=== PATIENT | female | born 1980 | race Caucasian/White ===

== ENCOUNTER 2020-07-31 09:58 | Outpatient (CLI) | payer MEDICARE, MEDICAID ==
--- NOTE | 2020-07-31 11:01 | MMO ---
Bilateral MAMMO Bilat Diag [facility]+CONNIE. CLINICAL HISTORY: Patient is 39 years old and is seen for diagnostic exam and lump or thickening in the left breast at 7 o'clock. The patient has the following family history of breast cancer: maternal aunt, malignant (generic). The patient has no personal history of cancer. The patient has a history of left needle biopsy at age 22 - benign. VIEWS: The views performed were: bilateral craniocaudal with tomosynthesis; bilateral mediolateral oblique with tomosynthesis; and bilateral mediolateral with tomosynthesis. FILMS COMPARED: The present examination has been compared to prior imaging studies performed at [facility] on 07/09/2012 and 07/31/2020. This study has been interpreted with the assistance of computer-aided detection. MAMMOGRAM FINDINGS: The breasts are extremely dense, which may lower the sensitivity of mammography. There are no suspicious masses, suspicious calcifications, or new areas of architectural distortion. There are no mammographic or sonographic abnormalities in the area of palpable concern. The patient is referred back to her clinician. Negative imaging findings should not preclude biopsy if clinical findings are suspicious. IMPRESSION: THERE ARE NO MAMMOGRAPHIC OR SONOGRAPHIC ABNORMALITIES IN THE AREA OF PALPABLE CONCERN. THE PATIENT IS REFERRED BACK TO HER CLINICIAN. NEGATIVE IMAGING FINDINGS SHOULD NOT PRECLUDE BIOPSY IF CLINICAL FINDINGS ARE SUSPICIOUS. THE RESULTS OF THIS EXAM WERE SENT TO THE PATIENT. ACR BI-RADS Category 1 - Negative MAMMOGRAPHY NOTE: 1. A negative mammogram report should not delay a biopsy if a dominant of clinically suspicious mass is present. 2. Approximately 10% to 15% of breast cancers are not detected by mammography. 3. Adenosis and dense breasts may obscure an underlying neoplasm. Reported by: KAYLENE LUIS MD Electonically Signed: [id number]
--- NOTE | 2020-07-31 11:09 | ULT ---
EXAM: US Breast Limited Lt PROVIDED CLINICAL HISTORY: Left breast palpable abnormality COMPARISON: None FINDINGS: Limited sonographic interrogation was performed of the 6-8 o'clock positions of the left breast breas t in the reported region of palpable concern. The sonographic appearance of the breast tissue in this region is normal. IMPRESSION: No sonographic abnormality is evident in the region of clinical concern. Negative imaging findings sh ould not preclude further evaluation of a clinically suspicious finding. Patient is referred back to her clinician.
== END 2020-07-31 09:59 | disposition home or self-care (01) ==
LOC: BICMAMMO 09:58
PROVIDERS: ATTEND Nurse Practitioner Women's Health
DX: N63.24 Unspecified lump in the left breast, lower inner quadrant (principal)
CPT/HCPCS: 76642; 77066; G0279

== ENCOUNTER 2020-08-04 14:42 | Inpatient (IN) | payer MEDICARE, MEDICAID, OTHER ==
--- NOTE | 2020-08-04 15:14 | CT ---
Exam: Head CT without contrast HISTORY: Level 1 stroke. Sudden onset right arm and leg numbness. No associated motor weakness. COMPARISON: 12/13/2016 FINDINGS: Hemorrhage: No intraparenchymal hemorrhage or extra-axial hematoma. Brain parenchyma: Cortical giraldo-white matter differentiation is preserved. No mass effect or midline shift. Basilar cisterns are patent. Ventricular system: Ventricles and sulci are patent and symmetric. Calvarium: Intact. Sinuses and mastoid air cells: Adequate aeration. IMPRESSION: No acute intracranial process. Results conveyed to Dr. Larose 08/04/2020 at 3:11 PM Code CR
[2020-08-04 15:30] LABS: #Lymphocytes 0.3 thou/uL (1.20-3.40); #Monocytes 0.4 thou/uL (0.11-0.59); #Neutrophils 10.1 thou/uL (1.40-6.50); %Basophils 0.2 % (0.0-1.0); %Eosinophils 0.4 % (0.0-10.0); %Lymphocytes 2.3 % (21.0-51.0); %Monocytes 3.5 % (0.0-10.0); %Neutrophils 93.6 % (42.0-75.0); Hemoglobin 9.6 g/dL (12.0-16.0); Mean Corpuscular HGB CONC 31.7 g/dL (32.0-36.0); Mean Corpuscular Hemoglobin 23.3 pg (27.0-31.0); Mean Corpuscular Volume 73.6 fL (78.0-98.0); Mean Platelet Volume 10.3 fL (7.4-10.4); Platelet Count 240 thou/uL (130-400); RBC Distribution Width 16.3 % (11.5-14.5); Red Blood Cell (RBC) Count 4.13 mill/uL (4.20-5.40); White Blood Cell (WBC) Count 10.8 thou/uL (4.8-10.8)
[2020-08-04] MEDS ORDERED: Iopamidol-370 76% 500 ML 1 ML ONE (15:30)
[2020-08-04 15:38] LABS: INR-International Normal Ratio 1.2; PTT 31.6 sec (22.9-36.1)
[2020-08-04 15:42] LABS: ALT (SGPT) 10 U/L (8-55); AST (SGOT) 12 U/L (5-34); Albumin 4.1 g/dL (3.5-5.0); Alkaline Phosphatase 31 U/L (40-110); Anion Gap 9 mmol/L (10-20); BUN (Urea Nitrogen) 18 mg/dL (7.0-18.7); Bilirubin, Total 0.4 mg/dL (0.2-1.2); CK (CPK) 22 U/L (29-168); Calc. Creatinine Clearance 0 mL/min (70-130); Calcium 8.2 mg/dL (7.8-10.44); Carbon Dioxide 22 mmol/L (22-29); Chloride 108 mmol/L (98-107); Estimated GFR-MDRD Greater than 90; Globulin 2.8 g/dL (2.4-3.5); Glucose 104 mg/dL (70-105); Potassium 3.4 mmol/L (3.5-5.1); Protein, Total 6.9 g/dL (6.0-8.3); Sodium 136 mmol/L (136-145)
[2020-08-04] MEDS ORDERED: Morphine 4 MG/ML VIAL ONE (15:43)
[2020-08-04 15:48] LABS: Elliptocytes SLIGHT = 2-5 cells (100X) (0-1/hpf); Hypochromia SLIGHT = 6-15 cells (100X) (0-5/hpf); MDiff Complete? YES; Microcytosis SLIGHT = 6-15 cells (100X) (0-5/hpf); Ovalocytes MODERATE= 6-15 cells (100X) (0-1/hpf); Platelet Morphology Comment Appears Adequate; Polychromasia SLIGHT = 2-3 cells (100X) (0-2/hpf); Schistocytes SLIGHT = 2-5 cells (100X) (0-1/hpf); Tear Drops SLIGHT = 2-5 cells (100X) (0-1/hpf)
[2020-08-04] MEDS ORDERED: Acetaminophen 500 MG TAB ONE (17:37)
[2020-08-04] MEDS ORDERED: Ondansetron PF 4 MG/2 ML Vial ONE ×2 (17:37→20:55)
[2020-08-04] MEDS ORDERED: Metoclopramide 10 MG/10 ML UDCUP ONE (18:00)
[2020-08-04] MEDS ORDERED: Metoclopramide HCl 10 MG/2 ML VIAL ONE ×2 (18:00→19:15)
[2020-08-04] MEDS ORDERED: Aspirin Chewable 81 MG TAB ONE (18:40)
[2020-08-04] MEDS ORDERED: diphenhydrAMINE 50 MG CAP ONE (19:15)
[2020-08-04] MEDS ORDERED: Ketorolac Tromethamine 30 MG/ML VIAL ONE (19:15)
[2020-08-04] MEDS ORDERED: diphenhydrAMINE 50 MG/ML VIAL ONE ×2 (19:16→19:17)
--- NOTE | 2020-08-04 19:34 | PDOC.HHP ---
Hospitalist HPI - History of Present Illness R side numbness History of Present Illness: PCP: [facility] The patient is a 39-year-old female with a past medical history significant for protein S deficiency and iron deficiency anemia that presents to the emergency department for the above complaint. The patient reports the acute onset of right arm and right leg pain and paresthesia at approximately 2:15 this afternoon. This was approximately 30 minutes prior to arrival in the emergency department. She reports an associated headache, located at the back of her head, described as "excruciating", constant, exacerbated and relieved by nothing, with associated nausea. She denies any focal motor weakness, change in vision, or change in speech. She denies any recent trauma. No change in medi ations. She has no history of migraines. She denies any recent fever/illness or neck stiffness. She has no history of DVT/PE. She has not on any hormone therapy. She denies ataxia or loss of control of bowel/bladder. She denies chest pain, heart palpitations and swelling to lower extremities. She denies cough, wheezing or shortness of breath. She denies abdominal pain, diarrhea, hematochezia or melena. She denies dysuria, hematuria or vaginal discharge. ED Course: VITAL SIGNS FriAug 04, 2020 14:44 DEVI Evans Cory BP: 111/65, Pulse: 127, Resp: 16, Temp: 98.3 (Oral), Pain: 9, O2 sat: 100 on (Room Air), Time: 08/04/2020 14:44. VITAL SIGNS FriAug 04, 2020 15:25 DEVI Chappell Lacee BP: 95/57, MAP: 69, Pulse: 108, Resp: 16, Temp: 99 (Oral), Pain: 10, O2 sat: 100 on (Room Air), Time: 08/04/2020 15:25. VITAL SIGNS FriAug 04, 2020 17:34 DEVI Chappell Lacee BP: 88/59, MAP: 68, Pulse: 108, Resp: 16, Temp: 98.9 (Oral), Pain: 10, O2 sat: 100 on (Room Air), Time: 08/04/2020 17:34. VITAL SIGNS FriAug 04, 2020 18:05 DEVI Chappell Lacee BP: 94/63, MAP: 73, Pulse: 93, Resp: 17, O2 sat: 100 on (Room Air), Time: 08/04/2020 18:05. VITAL SIGNS FriAug 04, 2020 18:46 DEVI Chappell, Rosalia BP: 85/50, MAP: 98, Pulse: 96, Resp: 16, Temp: 98.3 (Oral), Pain: 9, O2 sat: 100 on (Room Air), Time: 08/04/2020 18:46 Medication administration: diphenhydrAMINE injection 25 mg IV Push Acknowledged 19:12 08/04/2020 ketorolac injection 30 mg IV Push Acknowledged 19:12 08/04/2020 metoclopramide injection 10 mg IV Piggy Back Given 19:23 08/04/2020 sodium chloride 0.9 % intravenous 1 L IV Fluid Infusion Given 19:22 08/04/2020 aspirin oral 324 mg Oral Given 18:43 08/04/2020 metoclopramide injection 10 mg IV Piggy Back Given 18:05 08/04/2020 Tylenol 1 g Oral Given 17:42 08/04/2020 ondansetron 4 mg IV Push Given 17:42 08/04/2020 morphine intravenous 4 mg IV Push Given 15:49 08/04/2020 Hospitalist ROS - Review of Systems All other systems reviewed; all pertinent +/- noted in HPI/Subj - Medication Medications: iron 325 mg (65 mg iron) tablet TABLET : Strength - 325 mg (65 mg iron) : ORAL Patient Dose: 1 tab(s) Oral once a day. Allergies: piperacillin, tazobactam, Zosyn Hospitalist History - Past Medical History Source: patient, RN notes reviewed Heme/Onc: reports: Iron deficiency anemia, Other (Protein S deficiency) - Past Surgical History Past Surgical History: reports: Appendectomy, (X2) - Family History Family History: reports: cardiac disorder (Mother). denies: cerebrovascular accident - Social History Smoking Status: Current some day smoker (Couple of cigarettes every other day) Tobacco Type: cigarettes Alcohol: reports: None Drugs: reports: none Living Situation: With Family Occupation: Does not work Activity level: independent ambulation - Exam General Appearance: NAD, awake alert Eye: PERRL, anicteric sclera ENT: normocephalic atraumatic, moist mucosa Neck: supple, symmetric, no JVD Heart: RRR, no murmur, no gallops, no rubs, normal peripheral pulses Respiratory: CTAB, no wheezes, no rales, no ronchi, normal chest expansion, no tachypnea Gastrointestinal: soft, non-tender, normal bowel sounds, no bruit, no guarding, no rigidity Extremities: no cyanosis, no edema Skin: normal turgor, no rashes Neurological: cranial nerve grossly intact, no weakness. negative: normal sensation to touch (Decreased sensation RUE/RLE), facial droop, speech deficit, vision deficit Musculoskeletal: normal tone, normal strength Psychiatric: normal affect, A&O x 3 Hospitalist Results - Labs Result Diagrams: 08/04/20 14:58 08/04/20 14:58 Lab results: WBC 10.8 thou/uL (4.8-10.8) 08/04/20 14:58 Hgb 9.6 g/dL (12.0-16.0) L 08/04/20 14:58 Hct 30.4 % (36.0-47.0) L 08/04/20 14:58 MCV 73.6 fL (78.0-98.0) L 08/04/20 14:58 Plt Count 240 thou/uL (130-400) 08/04/20 14:58 Neutrophils % 93.6 % (42.0-75.0) H 08/04/20 14:58 Sodium 136 mmol/L (136-145) 08/04/20 14:58 Potassium 3.4 mmol/L (3.5-5.1) L 08/04/20 14:58 Chloride 108 mmol/L (98-107) H 08/04/20 14:58 Carbon Dioxide 22 mmol/L (22-29) 08/04/20 14:58 BUN 18 mg/dL (7.0-18.7) 08/04/20 14:58 Creatinine 0.65 mg/dL (0.6-1.1) 08/04/20 14:58 Glucose 104 mg/dL (70-105) 08/04/20 14:58 Calcium 8.2 mg/dL (7.8-10.44) 08/04/20 14:58 Total Bilirubin 0.4 mg/dL (0.2-1.2) 08/04/20 14:58 AST 12 U/L (5-34) 08/04/20 14:58 ALT 10 U/L (8-55) 08/04/20 14:58 Alkaline Phosphatase 31 U/L (40-110) L 08/04/20 14:58 Creatine Kinase 22 U/L (29-168) L 08/04/20 14:58 Troponin I Less than 0.010 ng/mL (< 0.028) 08/04/20 14:58 Serum Total Protein 6.9 g/dL (6.0-8.3) 08/04/20 14:58 Albumin 4.1 g/dL (3.5-5.0) 08/04/20 14:58 - EKG Interpretation EK lead EKG interpreted by Emergency Department Physician at time of study, 12 lead EKG shows normal sinus rhythm, Rate (beats per minute): 91, T waves normal, [place] normal, Low voltage. - Radiology Interpretation CT scan - head Status: report reviewed by me Additional Comment: CT brain IMPRESSION: No acute intracranial process. CTA head and neck IMPRESSION: No hemodynamically significant stenosis, occlusion or aneurysmal formation. Hospitalist H&P A/P - Problem (1) Paresthesia of right arm and leg Code(s): R20.2 - PARESTHESIA OF SKIN Status: Acute (2) Headache Code(s): R51.9 - HEADACHE, UNSPECIFIED Status: Acute (3) Protein S deficiency Code(s): D68.59 - OTHER PRIMARY THROMBOPHILIA Status: Chronic (4) Low serum magnesium level Code(s): E83.42 - HYPOMAGNESEMIA Status: Acute (5) Iron deficiency anemia Code(s): D50.9 - IRON DEFICIENCY ANEMIA, UNSPECIFIED Status: Chronic (6) Tobacco abuse Code(s): Z72.0 - TOBACCO USE Status: Chronic - Plan Plan: 39/F with PMH protein S deficiency and DANIELLE presents for right-sided pares thesias. Admit to stroke unit, observation status. Expected length of stay less than 2 midnights. Presented stable vital signs. EKG NSR, no ST elevation. CT brain negative for acute process. CTA head and neck negative for acute process. Hgb 9.6, HCT 30.4 #Paresthesias of right arm and leg Rule out stroke. Obtain MRI, echocardiogram. Consult neurology and stroke team. Continue aspirin, start statin. Check FLP, TSH, UA/UDS, B12 and folate, hCG. Neuro checks. Permissive hypertension. #Headache Differential diagnosis complex migraine. Given headache protocol in ED. Give magnesium 2gm IVPB. We will add [place] as needed. #Protein S deficiency Chronic. Coags unremarkable. Consult heme-onc. #Low serum magnesium level Presented mag 1.8, relative low. We will give 2 g mag IVP. Recheck level in a.m. #Iron deficiency anemia Chronic. Hgb 9.6, HCT 30.4 Denies hemoptysis, hematochezia, melena. Takes iron pill daily. Restart home medication when reconciled by nursing. SCDs for DVT prophylaxis. No GI prophylaxis. Full code. Discussed case with Dr. Roxana Ramires.
[2020-08-04] MEDS ORDERED: Labetalol HCl 100 MG/20 ML VIAL SLOW IVP PRN (19:56)
[2020-08-04] MEDS ORDERED: hydrALAZINE 20 MG/ML VIAL SLOW IVP PRN (19:56)
[2020-08-04] MEDS ORDERED: HYDROcodone/Acetaminophen 5/325 mg Tablet PO PRN (20:00)
[2020-08-04] MEDS ORDERED: Acetaminophen 325 MG TAB PO PRN (20:00)
[2020-08-04] MEDS ORDERED: Sodium Chloride 0.9% 1,000 ML IV SCH (20:00)
[2020-08-04] MEDS ORDERED: Ondansetron PF 4 MG/2 ML Vial IVP PRN (20:00)
[2020-08-04] MEDS ORDERED: Ondansetron ODT 4 MG TAB PO PRN (20:00)
[2020-08-04] MEDS ORDERED: Magnesium 2 GM/50 ML 2 GM in Premix Bag 1 BAG IVPB SCH (20:15)
--- NOTE | 2020-08-04 20:33 | RAD ---
PORTABLE CHEST: 08/04/20 HISTORY: Right arm numbness. Heart size is enlarged. Mediastinal structures appear unremarkable. Lungs are clear of infiltrates. N o signs of failure. IMPRESSION: Cardiomegaly. POS: OFF
[2020-08-04 20:37] LABS: BHCG - Serum Negative (NEGATIVE); Pregs Control Background? CLEAR/WHITE (CLR/WHITE); Pregs Control Bar Appear? YES (CONTROL BAR)
[2020-08-05] MEDS: Atorvastatin Calcium 40 MG TAB PO SCH ×2 (00:02→21:12)
[2020-08-05 00:34] LABS: Bacteria/HPF None Seen HPF (None Seen); Bilirubin Negative (Negative); Blood, Urine Negative (Negative); Clarity Clear (Clear); Glucose, Urine (Dipstick) Normal (Negative); Ketone, Urine Trace mg/dL (Negative); Leukocyte Negative Leu/uL (Negative); Nitrite Negative (Negative); Protein, Urine (Dipstick) 20 mg/dL (Neg-Trace); Urobilinogen Normal mg/dL (Less than 2); WBC/HPF 0-3 HPF (0-3); pH, Urine 5.5 (5.0-9.0)
[2020-08-05 00:37] LABS: Specific Gravity, Urine Greater than 1.060 (1.002-1.036)
[2020-08-05 02:34] VITALS: BMI 24.0
[2020-08-05 02:51] LABS: Medtox Reader # READER 4
[2020-08-05 02:52] LABS: Amphetamine Not Detected (NotDetected); Barbiturates Screen Not Detected (NotDetected); Benzodiazepine Screen Not Detected (NotDetected); Cocaine Metabolite Screen Not Detected (NotDetected); Medtox Control Line Valid? VALID (VALID); Methadone Not Detected (NotDetected); Methamphetamine Not Detected (NotDetected); Opiate Screen Detected (NotDetected); Oxycodone Screen Not Detected (NotDetected); Phencyclidine (PCP) Not Detected (NotDetected); THC/Cannabinoid Screen Not Detected (NotDetected); Tricyclic Screen Not Detected (NotDetected)
[2020-08-05 05:00] LABS: #Lymphocytes 0.2 thou/uL (1.20-3.40); #Monocytes 0.2 thou/uL (0.11-0.59); #Neutrophils 7.8 thou/uL (1.40-6.50); %Basophils 0.2 % (0.0-1.0); %Eosinophils 0.1 % (0.0-10.0); %Lymphocytes 2.4 % (21.0-51.0); %Monocytes 2.7 % (0.0-10.0); %Neutrophils 94.6 % (42.0-75.0); Hemoglobin 8.4 g/dL (12.0-16.0); Mean Corpuscular HGB CONC 31.4 g/dL (32.0-36.0); Mean Corpuscular Hemoglobin 23.1 pg (27.0-31.0); Mean Corpuscular Volume 73.5 fL (78.0-98.0); Mean Platelet Volume 11.4 fL (7.4-10.4); Platelet Count 185 thou/uL (130-400); RBC Distribution Width 16.1 % (11.5-14.5); Red Blood Cell (RBC) Count 3.62 mill/uL (4.20-5.40); White Blood Cell (WBC) Count 8.2 thou/uL (4.8-10.8)
[2020-08-05 05:25] LABS: Anion Gap 7 mmol/L (10-20); BUN (Urea Nitrogen) 16 mg/dL (7.0-18.7); Calc. Creatinine Clearance 99 mL/min (70-130); Calcium 7.6 mg/dL (7.8-10.44); Carbon Dioxide 21 mmol/L (22-29); Cardiac Risk 2.1 (Less than 4.5); Chloride 110 mmol/L (98-107); Cholesterol 78 mg/dl (< 200 Desired); Estimated GFR-MDRD Greater than 90; Glucose 107 mg/dL (70-105); HDL Cholesterol 38 mg/dL (>60 Neg Risk); LDL Cholesterol, Calculated 30 mg/dL; Magnesium 2.8 mg/dL (1.6-2.6); Potassium 3.4 mmol/L (3.5-5.1); Sodium 135 mmol/L (136-145); Triglycerides 51 mg/dL (Less than 150)
[2020-08-05] MEDS ORDERED: Aspirin 325 mg Enteric Coated Tablet PO SCH (09:00)
[2020-08-05] MEDS: HYDROcodone/Acetaminophen 5/325 mg Tablet PO PRN ×2 (09:15→18:20)
[2020-08-05] MEDS: Potassium Chloride 20 MEQ TAB PO SCH ×2 (09:16→18:11)
--- NOTE | 2020-08-05 11:08 | MRI ---
EXAM: MRI Brain WO Con PROVIDED CLINICAL HISTORY: Right-sided headache and head pressure. Right arm numbness and right leg pain. Stroke. COMPARISON: CT head on 08/04/2020 FINDINGS: No signal abnormalities are seen throughout the brain. There are no areas of restricted diffusion to suggest an acute infarction. There is a cavum septum pellucidum at vergae which is a normal variant. Ventricular system is normal in size, shape, and position. No midline shift is seen. Appropriate flow voids are demonstrated in the large intracranial vessels at the base of the brain. T he right vertebral artery may potentially terminate in PICA which is a normal variant. The orbits have a normal MRI appearance. Minimal mucosal thickening is seen in a few ethmoidal air cells. Remainder the skull base has a isabel l MRI appearance. IMPRESSION: 1. No acute intracranial abnormality is demonstrated.
[2020-08-05 12:03] LABS: SARS-CoV-2 MS2 Positive; SARS-CoV-2 N Gene Negative; SARS-CoV-2 S Gene Negative; SARS-CoV-2 by NAA Not Detected (NotDetected); SARS-CoV-2 orf1ab Negative
[2020-08-05] MEDS ORDERED: Valproate Sodium 500 MG in Sodium Chloride 0.9% 100 ML IVPB SCH (12:45)
--- NOTE | 2020-08-05 13:50 | PDOC.HOSPP ---
- Subjective Encounter Date: 08/05/20 Encounter Time: 11:30 Subjective: Patient seen and examined for right-sided neuro deficit. Continues to have right upper extremity numbness. There is some discomfort in the right leg. No double vision, blurring of vision or facial asymmetry reported. Patient denies any chest pain or shortness of breath - Objective Vital Signs & Weight: Vital Signs (12 hours) Temp Pulse Resp BP BP Pulse Ox 08/05/20 11:27 98.9 F 83 16 80/56 L 98 08/05/20 09:15 99.2 F 18 98/64 08/05/20 07:08 98.5 F 91 16 75/55 L 96 08/05/20 04:00 98.0 F 91 16 115/66 96 Weight Weight 110 lb 14.28 oz I&O: 08/04/20 08/05/20 08/06/20 06:59 06:59 06:59 Intake Total 386 240 Balance 386 240 Result Diagrams: 08/05/20 04:38 08/05/20 04:38 Additional Labs: Abnormal Lab Results - Last 48 hrs 08/04/20 14:58: Potassium 3.4 L, Chloride 108 H, Anion Gap 9 L, Alkaline Phosphatase 31 L, Creatine Kinase 22 L 08/04/20 14:58: RBC 4.13 L, Hgb 9.6 L, Hct 30.4 L, MCV 73.6 L, MCH 23.3 L, MCHC 31.7 L, RDW 16.3 H, Neutrophils % 93.6 H, Lymphocytes % 2.3 L, Neutrophils # 10.1 H, Lymphocytes # 0.3 L, Ovalocytes MODERATE= 6-15 cells H 08/04/20 14:58: PT 15.0 H 08/05/20 00:15: Ur Specific [place] Greater than 1.060 H, Urine Ketones Trace A, Urine RBC 4-6 A, Ur Squamous Epith Cells 7-10 A 08/05/20 00:15: Urine Opiates Screen Detected H 08/05/20 04:38: Sodium 135 L, Potassium 3.4 L, Chloride 110 H, Carbon Dioxide 21 L, Anion Gap 7 L, Calcium 7.6 L, Magnesium 2.8 H 08/05/20 04:38: RBC 3.62 L, Hgb 8.4 L, Hct 26.6 L, MCV 73.5 L, MCH 23.1 L, MCHC 31.4 L, RDW 16.1 H, MPV 11.4 H, Neutrophils % 94.6 H, Lymphocytes % 2.4 L, Neutrophils # 7.8 H, Lymphocytes # 0.2 L EKG Reviewed by me: Yes (Sinus rhythm on telemetry) Hospitalist ROS - Review of Systems Cardiovascular: denies: chest pain, palpitations, orthopnea, paroxysmal noc. dyspnea, edema, light headedness, other Gastrointestinal: denies: nausea, vomiting, abdominal pain, diarrhea, constipation, melena, hematochezia, other - Medication Medications: Active Medications Generic Name Dose Route Start Last Admin Trade Name Freq PRN Reason Stop Dose Admin Hydrocodone Bitart/Acetaminophen 1 tab 08/04/20 20:00 08/05/20 09:15 Hydrocodone/Acetaminophen 5/325 Mg Tablet PO 1 tab Q4H PRN Administration Moderate Pain (4-6) Aspirin 325 mg 08/05/20 09:00 08/05/20 09:14 Aspirin 325 Mg Enteric Coated Tablet PO 325 mg DAILY OSCAR Administration Atorvastatin Calcium 40 mg 08/04/20 21:00 08/05/20 00:02 Atorvastatin Calcium 40 Mg Tab PO 40 mg HS OSCAR Administration Valproic Acid 500 mg/ Sodium 105 mls @ 100 mls/hr 08/05/20 12:45 08/05/20 13:31 Chloride IVPB 08/05/20 16:00 105 mls NOW OSCAR Administration Potassium Chloride 20 meq 08/05/20 08:00 08/05/20 09:16 Potassium Chloride 20 Meq Tab PO 08/05/20 17:01 20 meq BID-WM OSCAR Administration - Exam General Appearance: NAD Neck: supple, no JVD Heart: RRR, no gallops, no rubs, normal peripheral pulses Respiratory: CTAB, no wheezes, no rales, no ronchi Gastrointestinal: soft, non-tender, non-distended, tender to palpation Extremities: no cyanosis, no clubbing, no edema Extremities - other findings: No calf tenderness Neurological: no new deficit Psychiatric: normal affect, A&O x 3 Hosp A/P - Plan DVT proph w/lovenox, DVT proph w/SCDs Right-sided paresthesiassuspected small vessel CVA. Generalized headachesmultifactorial History of protein S deficiency Hypomagnesemia/hyponatremia/hypokalemia Hypochromic microcytic anemia Plan: MRI of the brain negative. Continue aspirin with statins. Replace potassium. Await neurology and hematology input. 1 dose of IV valproic acid for persistent headache. Continue physical therapy/Occupational Therapy evaluation. Recheck labs in a.m. Check reticulocyte and iron profile in a.m. Continue to monitor. Echocardiogram showed ejection fraction 60 to 65% with diastolic dysfunction. Questionable thickening of the posterior leaflet of the mitral valve with mild tricuspid regurgitation.
--- NOTE | 2020-08-05 16:04 | CON ---
NEUROLOGY CONSULTATION DATE OF CONSULTATION: 08/05/2020 REASON FOR CONSULTATION: Headache with right-sided numbness. HISTORY OF PRESENT ILLNESS: Ms. Jarrett is a 39-year-old female with medical history significant for protein S deficiency and iron deficiency anemia, presented to the emergency room with right upper and lower extremity painful paresthesias, which started around 2:15 yesterday, associated with headache, which is located at the back of her head and described as excruciating, constant pain, which is not relieved by anything and it was associated with nausea. The patient denies any motor weakness, problems with speech, swallowing, vision, vertigo, abnormal body movements, fever, neck stiffness, chest pain, abdominal pain, palpitation, headache, shortness of breath, recent illness, or recent exposure to COVID. REVIEW OF SYSTEMS: All 12 systems were reviewed and were negative except the pertinent positives and negatives mentioned in the HPI. Blood pressure 111/65, respiratory rate 16, temperature 98.3. In the emergency room, she was given Toradol, Benadryl, metoclopramide, normal saline, morphine, and Tylenol, and was admitted for further evaluation. HOME MEDICATION: Iron 325 mg daily. ALLERGIES: PIPERACILLIN AND TAZOBACTAM (ZOSYN). PAST MEDICAL HISTORY: Iron deficiency anemia, protein S deficiency. PAST SURGICAL HISTORY: Appendectomy, section x2. FAMILY HISTORY: Mother has coronary artery disease. No family history of cerebrovascular accident. SOCIAL HISTORY: The patient drinks a couple of cigarettes every other day. Lives with family. Does not work. Independent ambulation. Denies illegal drug use. Vital Signs & Weight: Vital Signs (12 hours) Temp Pulse Resp BP BP Pulse Ox 08/05/20 11:27 98.9 F 83 16 80/56 L 98 08/05/20 09:15 99.2 F 18 98/64 08/05/20 07:08 98.5 F 91 16 75/55 L 96 08/05/20 04:00 98.0 F 91 16 115/66 96 Weight Weight 110 lb 14.28 oz I&O: 08/04/20 08/05/20 08/06/20 06:59 06:59 06:59 Intake Total 386 240 Balance 386 240 Exam General Appearance: NAD, awake alert Eye: PERRL, anicteric sclera ENT: normocephalic atraumatic, moist mucosa Neck: supple, symmetric, no JVD Heart: RRR, no murmur, no gallops, no rubs, normal peripheral pulses Respiratory: CTAB, no wheezes, no rales, no ronchi, normal chest expansion, no tachypnea Gastrointestinal: soft, non-tender, normal bowel sounds, no bruit, no guarding, no rigidity Extremities: no cyanosis, no edema Skin: normal turgor, no rashes Neurological: Mental status, the patient is alert and oriented to person, place, and time. Speech is clear. Recent and remote memory, intact. Cranial nerves 2 through 12 are intact. Motor, muscle tone and bulk are normal. Strength 5/5 bilaterally. Sensory, decreased sensation to light touch in the right upper and lower extremities. Cerebellar, finger-nose testing intact. Gait deferred due to the patient's safety reason. DATA REVIEWED: Labs were reviewed, which were significant for anemia with hemoglobin of 9.6, hematocrit of 30.4, and hypokalemia of 3.4. A 12-lead EKG showed normal sinus rhythm, and head CT did not reveal any acute intracranial process. CT of the head and neck was also unremarkable. Lab results: WBC 10.8 thou/uL (4.8-10.8) 08/04/20 14:58 Hgb 9.6 g/dL (12.0-16.0) L 08/04/20 14:58 Hct 30.4 % (36.0-47.0) L 08/04/20 14:58 MCV 73.6 fL (78.0-98.0) L 08/04/20 14:58 Plt Count 240 thou/uL (130-400) 08/04/20 14:58 Neutrophils % 93.6 % (42.0-75.0) H 08/04/20 14:58 Sodium 136 mmol/L (136-145) 08/04/20 14:58 Potassium 3.4 mmol/L (3.5-5.1) L 08/04/20 14:58 Chloride 108 mmol/L (98-107) H 08/04/20 14:58 Carbon Dioxide 22 mmol/L (22-29) 08/04/20 14:58 BUN 18 mg/dL (7.0-18.7) 08/04/20 14:58 Creatinine 0.65 mg/dL (0.6-1.1) 08/04/20 14:58 Glucose 104 mg/dL (70-105) 08/04/20 14:58 Calcium 8.2 mg/dL (7.8-10.44) 08/04/20 14:58 Total Bilirubin 0.4 mg/dL (0.2-1.2) 08/04/20 14:58 AST 12 U/L (5-34) 08/04/20 14:58 ALT 10 U/L (8-55) 08/04/20 14:58 Alkaline Phosphatase 31 U/L (40-110) L 08/04/20 14:58 Creatine Kinase 22 U/L (29-168) L 08/04/20 14:58 Troponin I Less than 0.010 ng/mL (< 0.028) 08/04/20 14:58 Serum Total Protein 6.9 g/dL (6.0-8.3) 08/04/20 14:58 Albumin 4.1 g/dL (3.5-5.0) 08/04/20 14:58 - EKG Interpretation EK lead EKG interpreted by Emergency Department Physician at time of study, 12 lead EKG shows normal sinus rhythm - Radiology Interpretation CT scan - head Status: report reviewed by me Additional Comment: CT brain IMPRESSION: No acute intracranial process. CTA head and neck IMPRESSION: No hemodynamically significant stenosis, occlusion or aneurysmal formation. ASSESSMENT AND PLAN: (1) Paresthesia of right arm and leg Code(s): R20.2 - PARESTHESIA OF SKIN Status: Acute (2) Headache Code(s): R51.9 - HEADACHE, UNSPECIFIED Status: Acute (3) Protein S deficiency Code(s): D68.59 - OTHER PRIMARY THROMBOPHILIA Status: Chronic (4) Low serum magnesium level Code(s): E83.42 - HYPOMAGNESEMIA Status: Acute (5) Iron deficiency anemia Code(s): D50.9 - IRON DEFICIENCY ANEMIA, UNSPECIFIED Status: Chronic (6) Tobacco abuse Code(s): Z72.0 - TOBACCO USE Status: Chronic Ms. Jarrett is a 39-year-old female with medical history significant for protein S deficiency and iron deficiency anemia, presented with right-sided paresthesias associated with headache. MRI of the brain reviewed, which was negative for acute intracranial pathology. Continue aspirin and high- intensity statin for secondary stroke prevention. CTA of the head and neck was negative for hemodynamically significant stenosis. 2D echo reviewed, which showed ejection fraction of 55% to 60%, however, there is a concern about mass and RHONA is recommended. Continue telemetry to rule out arrhythmias. Neuro checks every 4 hours. Continue home medications. Continue headache control per primary team. Continue medical management per primary team. DVT prophylaxis with SCD. We will continue to follow. Thank you for the consult. Job ID: [id number] [email or web address]
--- NOTE | 2020-08-05 18:26 | CON ---
DATE OF CONSULTATION: 08/05/2020 HISTORY OF PRESENT ILLNESS: Ms. Jarrett is a 39-year-old female with a history of protein S deficiency as well as chronic iron deficiency anemia, who presented to the hospital with complaints of right arm tingling and numbness. She also complains of a throbbing headache. In the emergency room, CT scan showed no signs of bleed or clot. An MRI within 24 hours confirmed that there were no signs of stroke. Today, she states that her arm is improving and is no longer tingling, although she is having some tingling in her leg and states she still has a headache. She denies any overall weakness and is able to ambulate and move. She describes good strength, at her baseline. Notably, her past history was complicated by two losses, one at 6 months and one at 7 months. It was determined at that time that she had protein S deficiency. Prior to the miscarriages, she did have a healthy baby without any complications or blood thinners. However, after the miscarriages, she had a 4th child that she delivered with the help of prophylactic Lovenox. She has never had DVT or pulmonary embolism and has only had trouble with pregnancies. She has also never had a stroke and has never been on anything other than prophylactic Lovenox during the . Her sister did have a DVT and pulmonary embolism during and required blood thinners, but the blood thinners were stopped after the was over, and her sister has had no other trouble, she is not on chronic anticoagulation. The patient does complain of some weakness and shortness of breath. She can tell her hemoglobin is low. She states it is 8 and knows it should be 12. She does describe heavy periods for 3 to 4 days every month and admits that she is not taking oral iron consistently, she did restart it within the last few weeks. It does cause her some constipation, but she is taking it currently. PAST MEDICAL HISTORY: 1. Protein S deficiency. 2. Chronic iron deficiency anemia secondary to heavy menses. CURRENT MEDICATIONS: 1. Tylenol p.r.n. 2. [place] p.r.n. 3. Aspirin 325 mg p.o. daily. 4. Atorvastatin 40 mg p.o. at bedtime. 5. Apresoline 10 mg IV q.4 hours p.r.n. 6. Labetalol p.r.n. 7. Ondansetron 4 mg p.o. q.6 hours p.r.n. 8. K-Dur 20 mEq p.o. b.i.d. 9. Valproic acid 500 mg IV daily. ALLERGIES: PIPERACILLIN AND TAZOBACTAM. SOCIAL HISTORY: She has 4 children, she is here with her boyfriend who appears supportive. She denies current tobacco or alcohol use. She is hoping to have more children. She does live in town. FAMILY HISTORY: Positive for protein S deficiency. REVIEW OF SYSTEMS: Otherwise, a 10-point review of systems negative. Please see the History of Present Illness. PHYSICAL EXAMINATION: VITAL SIGNS: Temperature 98.9, pulse 83, blood pressure 98/64, respirations 16 to 18, blood pressure 80/56, and O2 saturation 96% on room air. GENERAL: She is alert, awake, oriented x3, is quite pleasant. No acute distress. HEENT: Extraocular muscles are intact. Pupils are equal, round, and reactive to light. She has no oral cavity lesions. NECK: Supple without lymphadenopathy. CARDIOVASCULAR: Regular rhythm. LUNGS: Clear to auscultation bilaterally. ABDOMEN: Hypoactive bowel sounds. Soft, nontender. EXTREMITIES: No edema. NEUROLOGICALLY: She is intact with strength, I defer the sensation exam to Neurology. DIAGNOSTIC DATA: 1. MRI of the brain showed no acute intracranial abnormality demonstrated. 2. CT angio of the [place] of [place] showed no hemodynamically significant stenosis, occlusion, or aneurysmal formation. LABORATORY DATA: White blood cell count 8.2, hemoglobin 8.4, and platelets 185. Sodium 135, potassium 3.4, chloride 110, CO2 of 21, BUN 16, creatinine 0.6, glucose 107, calcium 7.6, magnesium 2.8. Serum test was negative. Total cholesterol 78. ASSESSMENT: Ms. Jarrett is a 39-year-old female with: 1. Paresthesias and tingling of the right and lower extremities, which seem to be improving with time without any abnormality on MRI or CT. 2. History of protein S deficiency with loss without issues of clotting outside of . 3. Iron deficiency anemia secondary to having menses. PLAN: 1. I would not recommend initiating any blood thinners at this time unless she has evidence of clot. If she does develop evidence of clot, I of course would recommend full-dose anticoagulation. 2. I would recommend Neurology consult to determine if any of her symptoms are caused by hypercoagulability, but at this point, I do not think we have any evidence of that. 3. We will check iron studies to see how low she is IV iron if necessary. 4. I would recommend if she gets , prophylactic Lovenox and possibly IV iron infusions. We will follow with you as an outpatient. Assuming that she does not develop signs of clotting at this time. Job ID: [id number]
[2020-08-05] MEDS ORDERED: Ketorolac Tromethamine 30 MG/ML VIAL IVP SCH (20:45)
[2020-08-06 05:20] LABS: #Eosinphils 0.2 thou/uL (0.0-0.7); #Lymphocytes 0.5 thou/uL (1.20-3.40); #Monocytes 0.3 thou/uL (0.11-0.59); #Neutrophils 2.7 thou/uL (1.40-6.50); %Basophils 0.8 % (0.0-1.0); %Eosinophils 5.2 % (0.0-10.0); %Lymphocytes 12.2 % (21.0-51.0); %Monocytes 8.4 % (0.0-10.0); %Neutrophils 73.4 % (42.0-75.0); Hemoglobin 8.3 g/dL (12.0-16.0); Mean Corpuscular HGB CONC 30.7 g/dL (32.0-36.0); Mean Corpuscular Hemoglobin 22.8 pg (27.0-31.0); Mean Corpuscular Volume 74.3 fL (78.0-98.0); Mean Platelet Volume 11.4 fL (7.4-10.4); Platelet Count 161 thou/uL (130-400); RBC Distribution Width 15.7 % (11.5-14.5); Red Blood Cell (RBC) Count 3.63 mill/uL (4.20-5.40); White Blood Cell (WBC) Count 3.7 thou/uL (4.8-10.8)
[2020-08-06 05:26] LABS: Reticulocyte Count 1.6 % (0.5-1.5)
[2020-08-06 05:46] LABS: ALT (SGPT) 52 U/L (8-55); AST (SGOT) 42 U/L (5-34); Albumin 3.2 g/dL (3.5-5.0); Alkaline Phosphatase 75 U/L (40-110); Anion Gap 9 mmol/L (10-20); BUN (Urea Nitrogen) 16 mg/dL (7.0-18.7); Bilirubin, Total 0.5 mg/dL (0.2-1.2); Calc. Creatinine Clearance 102 mL/min (70-130); Calcium 7.7 mg/dL (7.8-10.44); Carbon Dioxide 22 mmol/L (22-29); Chloride 109 mmol/L (98-107); Estimated GFR-MDRD Greater than 90; Globulin 2.4 g/dL (2.4-3.5); Glucose 93 mg/dL (70-105); Iron 10 ug/dL (50-170); Iron Binding Capacity, Total 294 mcg/dL (265-497); Protein, Total 5.6 g/dL (6.0-8.3); Sodium 136 mmol/L (136-145)
[2020-08-06] MEDS ORDERED: Iron, Sodium Ferric Gluconate 250 MG in Sodium Chloride 0.9% 100 ML IVPB SCH (08:15)
[2020-08-06] MEDS: Aspirin 81 mg Enteric Coated Tablet PO SCH (08:34)
[2020-08-06] MEDS ORDERED: Ibuprofen 200 MG TAB PO PRN (11:18)
[2020-08-06] MEDS ORDERED: Famotidine 20 MG TAB PO SCH (11:30)
[2020-08-06] MEDS: Naproxen 500 MG TAB PO PRN ×2 (11:57→20:40)
--- NOTE | 2020-08-06 12:55 | MRI ---
MRI Cervical spine without contrast: HISTORY: Right forearm paresthesias/right leg pain for 3 days. Right arm numbness. COMPARISON: None FINDINGS: The craniocervical junction is unremarkable. No significant cord signal abnormality. Paravertebral soft tissues have a normal appearance and normal signal intensity. There is straightening of normal cervical lordotic curvature which may be related to muscle spasm or positioning. This was also seen on CT angiogram neck on 08/04/2020. C1-2:No significant stenosis. C2-3: This level is incompletely imaged on axial images, and neural foramina are inadequately assesse d. The right neural foramen is patent. Left neural foramen is incompletely imaged to evaluate for foraminal narrowing. No significant central canal narrowing present.. C3-4: There is no disc bulge or disc herniation. The central spinal canal and neural foramina are pat ent. C4-5: There is no disc bulge or disc herniation. Central spinal canal and neural foramina are patent. C5-6: There is slight height loss of the intervertebral disc. Mild disc osteophyte complex is present greater laterally on the left. This narrows the ventral subarachnoid space with slight flattening of the anterior aspect of the spinal cord. Minimal left-sided neural foraminal narrowing is present. The right neural foramen is patent. C6-7: There is no disc bulge disc herniation. The central spinal canal and neural foramina are patent . C7-T1: There is no disc bulge or disc herniation. The central spinal canal and neural foramina are pa tent. There are increased T2-weighted signal intensity structures seen within the neural foramina at the T1 -2 level likely related to dilated nerve root sleeves which are incompletely imaged. IMPRESSION: 1. Mild disc degenerative change at the C5-6 level. There is no significant central canal or neural f oraminal narrowing at any level of the cervical spine. 2. Straightening of the normal cervical lordotic curvature which may be related to muscle spasm or po sitioning.
--- NOTE | 2020-08-06 14:31 | PDOC.HOSPP ---
- Subjective Encounter Date: 08/06/20 Encounter Time: 10:00 Subjective: Patient seen and examined for right-sided paresthesias with the right leg pain. No new focal deficit. She denies any double vision, blurring of vision or facial asymmetry. No chest pain or palpitations reported. - Objective Vital Signs & Weight: Vital Signs (12 hours) Temp Pulse Resp BP Pulse Ox 08/06/20 11:52 98.1 F 74 16 98/62 97 08/06/20 07:55 98.1 F 75 16 93/62 97 08/06/20 04:44 97.8 F 67 16 102/67 97 Weight Weight 110 lb 14.28 oz I&O: 08/05/20 08/06/20 08/07/20 06:59 06:59 06:59 Intake Total 386 820 Balance 386 820 Result Diagrams: 08/06/20 04:49 08/06/20 04:49 Additional Labs: Abnormal Lab Results - Last 48 hrs 08/04/20 14:58: Potassium 3.4 L, Chloride 108 H, Anion Gap 9 L, Alkaline Phosphatase 31 L, Creatine Kinase 22 L 08/04/20 14:58: RBC 4.13 L, Hgb 9.6 L, Hct 30.4 L, MCV 73.6 L, MCH 23.3 L, MCHC 31.7 L, RDW 16.3 H, Neutrophils % 93.6 H, Lymphocytes % 2.3 L, Neutrophils # 10.1 H, Lymphocytes # 0.3 L, Ovalocytes MODERATE= 6-15 cells H 08/04/20 14:58: PT 15.0 H 08/05/20 00:15: Ur Specific [place] Greater than 1.060 H, Urine Ketones Trace A, Urine RBC 4-6 A, Ur Squamous Epith Cells 7-10 A 08/05/20 00:15: Urine Opiates Screen Detected H 08/05/20 04:38: Sodium 135 L, Potassium 3.4 L, Chloride 110 H, Carbon Dioxide 21 L, Anion Gap 7 L, Calcium 7.6 L, Magnesium 2.8 H 08/05/20 04:38: RBC 3.62 L, Hgb 8.4 L, Hct 26.6 L, MCV 73.5 L, MCH 23.1 L, MCHC 31.4 L, RDW 16.1 H, MPV 11.4 H, Neutrophils % 94.6 H, Lymphocytes % 2.4 L, Neutrophils # 7.8 H, Lymphocytes # 0.2 L 08/06/20 04:49: Chloride 109 H, Anion Gap 9 L, Calcium 7.7 L, Iron 10 L, AST 42 H, Serum Total Protein 5.6 L, Albumin 3.2 L 08/06/20 04:49: WBC 3.7 L, RBC 3.63 L, Hgb 8.3 L, Hct 27.0 L, MCV 74.3 L, MCH 22.8 L, MCHC 30.7 L, RDW 15.7 H, MPV 11.4 H, Lymphocytes % 12.2 L, Lymphocytes # 0.5 L 08/06/20 04:49: Retic Count 1.6 H Radiology Reviewed by me: Yes (MRI of the brainnegative for acute CVA) EKG Reviewed by me: Yes (Sinus rhythm on telemetry) Hospitalist ROS - Review of Systems Respiratory: denies: cough, dry, shortness of breath, hemoptysis, SOB with excertion, pleuritic pain, sputum, wheezing, other Cardiovascular: denies: chest pain, palpitations, orthopnea, paroxysmal noc. dyspnea, edema, light headedness, other - Medication Medications: Active Medications Generic Name Dose Route Start Last Admin Trade Name Freq PRN Reason Stop Dose Admin Hydrocodone Bitart/Acetaminophen 1 tab 08/04/20 20:00 08/05/20 18:20 Hydrocodone/Acetaminophen 5/325 Mg Tablet PO 1 tab Q4H PRN Administration Moderate Pain (4-6) Hydrocodone Bitart/Acetaminophen 2 tab 08/04/20 20:00 08/05/20 21:12 Hydrocodone/Acetaminophen 5/325 Mg Tablet PO 2 tab Q4H PRN Administration Severe Pain (7-10) Aspirin 81 mg 08/06/20 09:00 08/06/20 08:34 Aspirin 81 Mg Enteric Coated Tablet PO 81 mg DAILY OSCAR Administration Atorvastatin Calcium 40 mg 08/04/20 21:00 08/05/20 21:12 Atorvastatin Calcium 40 Mg Tab PO 40 mg HS OSCAR Administration Naproxen 500 mg 08/06/20 11:23 08/06/20 11:57 Naproxen 500 Mg Tab PO 500 mg TIDPRN PRN Administration Moderate to Severe Pain (6-10) - Exam General Appearance: NAD Heart: RRR, no gallops Respiratory: no wheezes, no ronchi Gastrointestinal: soft, non-tender, normal bowel sounds Extremities: no cyanosis, no clubbing Neurological: no new deficit Psychiatric: normal affect, A&O x 3 Hosp A/P - Plan DVT proph w/SCDs Right-sided paresthesiassuspected small vessel CVA. Generalized headachesmultifactorial History of protein S deficiency Hypomagnesemia/hyponatremia/hypokalemia Hypochromic microcytic anemia due to iron deficiency Plan: Neurology and hematology input appreciated. Patient continues to have similar neuro deficit. Will rule out cervical spinal cord pathology with MRI. Patient continues to have headache. We will start her on IV iron infusion. Hold anticoagulation per hematology recommendation. MRI of the brain was negative for acute CVA. Electrolytes replaced. Reduce aspirin to 81 mg. Continue statins. Continue to monitor. Echocardiogram showed ejection fraction 60 to 65% with diastolic dysfunction. Questionable thickening of the posterior leaflet of the mitral valve with mild tricuspid regurgitationoutpatient cardiology follow-up. Status changed to inpatient yesterday per [facility] recommendation.
[2020-08-06] MEDS ORDERED: diphenhydrAMINE 25 MG CAP PO PRN (18:19)
[2020-08-06] MEDS ORDERED: Prochlorperazine Maleate 5 MG TAB PO PRN (18:19)
[2020-08-06] MEDS: Famotidine 20 MG TAB PO SCH (20:40)
[2020-08-06] MEDS: Atorvastatin Calcium 40 MG TAB PO SCH (20:40)
[2020-08-07] MEDS: Aspirin 81 mg Enteric Coated Tablet PO SCH (09:04)
[2020-08-07] MEDS: Famotidine 20 MG TAB PO SCH (09:04)
--- NOTE | 2020-08-07 10:49 | CT ---
EXAM: CT ANGIOGRAM OF THE HEAD AND NECK INDICATION: Level 1 stroke. Sudden onset right arm and leg numbness. COMPARISON: None. TECHNIQUE: CT angiogram of the head and neck are performed in the axial plane. Three-dimensional reformatted casandra ges are submitted for interpretation. FINDINGS: CTA OF THE HEAD WITH AND WITHOUT CONTRAST: POSTCONTRAST CT OF BRAIN: Pathologic enhancement: No pathologic enhancement the brain. Note is made of a partially empty sella which is atypical for a patient of this age. Correlate for in tracranial hypertension. POSTCONTRAST SOFT TISSUE NECK CT: Aerodigestive tract:Aerodigestive tract is patent. No mucosal abnormality. Sinuses: Adequate aeration. Orbits: Bilateral ocular lenses are appropriately located. Both globes are intact. Retrobulbar fat is preserved. Symmetric attenuation the optic nerves and ocular rectus muscles. Salivary glands:Symmetric attenuation . Thyroid gland: Appropriate attenuation. Lymph nodes: No evidence of lymphadenopathy by size criteria. Paraspinal muscles: Symmetric attenuation of the sternocleidomastoid muscles. Appropriate attenuation of the paraspinal muscles. Cervical spine:Vertebral body height is maintained. No fracture. No significant central canal stenosi s or significant neural foraminal narrowing. Limited evaluation by technique. Upper mediastinum and lung apices: No acute abnormality. CTA OF THE NECK WITH CONTRAST: Aorta: Normal caliber. Right carotid artery: Appropriate enhancement and luminal diameter of the right carotid artery. No si gnificant stenosis based upon NASCET criteria. Left carotid: Appropriate enhancement and luminal diameter the left carotid artery. No significant st enosis based upon NASCET criteria. Subclavian arteries:Symmetric and patent. Vertebral arteries:Patent throughout their course in the neck. Dominant left vertebral artery. CTA OF THE BRAIN: Intracranial internal carotid arteries:Appropriate enhancement and luminal diameter . Anterior circulation: Appropriate enhancement and luminal diameter the A1 segments, proximal A2 segme nts, M1 segments and proximal MCA branches. Intracranial vertebral arteries: Appropriate enhancement and luminal diameter. The right vertebral ar raymundo has a PICA termination. Posterior circulation: The left vertebral artery is the sole supplying vessel to the basilar artery. Bilateral P1 segments have appropriate enhancement and luminal diameter. IMPRESSION: No hemodynamically significant stenosis, occlusion or aneurysmal formation. Results of the study conveyed to Dr. Larose 08/04/2020 at 3:40 PM Code CR Transcribed Date/Time: 08/07/2020 10:49 AM
[2020-08-07] MEDS ORDERED: Gabapentin 100 MG CAP PO SCH ×2 (11:45→15:00)
--- NOTE | 2020-08-07 12:23 | ULT ---
EXAM: Right lower extremity venous ultrasound HISTORY: Right lower extremity pain and edema COMPARISON: 12/08/2016 TECHNIQUE: Multiplanar grayscale and color Doppler images were obtained in a right lower extremity ve nous ultrasound. Spectral analysis of the Doppler waveforms were performed. FINDINGS: The common femoral vein, profunda femoral vein, superficial femoral vein, and popliteal vei n are normal in appearance without visible thrombus. These vessels demonstrate normal compression, flow, and augmentation. The posterior tibial vein and greater saphenous vein are patent without evidence of thrombus. IMPRESSION: No evidence of DVT.
--- NOTE | 2020-08-07 12:36 | PDOC.NEUPN ---
- Subjective Encounter Date: 08/07/20 Subjective: Patient continues to have headache with focal paresthesias. MRI of the brain negative for acute intracranial process. Patient also complaining of pain in the right lower extremity and is concerned about clot. Ultrasound duplex of the right lower extremity negative - Objective Vital Signs & Weight: Vital Signs (12 hours) Temp Pulse Resp BP Pulse Ox 08/07/20 11:49 97.7 F 71 16 89/53 L 99 08/07/20 07:00 98.3 F 69 16 83/54 L 98 08/07/20 03:22 97.9 F 69 20 94/66 99 Weight Weight 110 lb 14.28 oz I&O: 08/06/20 08/07/20 08/08/20 06:59 06:59 06:59 Intake Total 820 Balance 820 Result Diagrams: 08/06/20 04:49 08/06/20 04:49 Radiology Reviewed by me: Yes EKG Reviewed by me: Yes ROS - Review of Systems Constitutional: denies: fever, chills, sweats, weakness, malaise, other Eyes: denies: pain, vision change, conjunctivae inflammation, eyelid inflammation, redness, other ENT: reports: other (headache). denies: ear pain, ear discharge, nose pain, nose discharge, nose congestion, mouth pain, mouth swelling, throat pain, throat swelling Cardiovascular: reports: no pertinent history Gastrointestinal: denies: nausea, vomiting, abdominal pain, diarrhea, constipation, melena, hematochezia, other Genitourinary: denies: dysuria, frequency, incontinence, hematuria, retention, other Musculoskeletal: denies: neck pain, shoulder pain, arm pain, back pain, hand pain, leg pain, foot pain, other Skin: denies: rash, lesions, chiara, bruising, other Neurological: reports: numbness, incoordination. denies: weakness, change in speech, confusion, seizures, other All Systems: All other systems reviewed; all pertinent +/- noted in HPI/Subj - Medication Medications: Active Medications Generic Name Dose Route Start Last Admin Trade Name Freq PRN Reason Stop Dose Admin Hydrocodone Bitart/Acetaminophen 1 tab 08/04/20 20:00 08/05/20 18:20 Hydrocodone/Acetaminophen 5/325 Mg Tablet PO 1 tab Q4H PRN Administration Moderate Pain (4-6) Hydrocodone Bitart/Acetaminophen 2 tab 08/04/20 20:00 08/05/20 21:12 Hydrocodone/Acetaminophen 5/325 Mg Tablet PO 2 tab Q4H PRN Administration Severe Pain (7-10) Aspirin 81 mg 08/06/20 09:00 08/07/20 09:04 Aspirin 81 Mg Enteric Coated Tablet PO 81 mg DAILY OSCAR Administration Atorvastatin Calcium 40 mg 08/04/20 21:00 08/06/20 20:40 Atorvastatin Calcium 40 Mg Tab PO 40 mg HS OSCAR Administration Diphenhydramine HCl 25 mg 08/06/20 18:19 08/06/20 20:40 Diphenhydramine 25 Mg Cap PO 25 mg Q6H PRN Administration .HEADACHE Famotidine 20 mg 08/06/20 21:00 08/07/20 09:04 Famotidine 20 Mg Tab PO 20 mg BID OSCAR Administration Naproxen 500 mg 08/06/20 11:23 08/06/20 20:40 Naproxen 500 Mg Tab PO 500 mg TIDPRN PRN Administration Moderate to Severe Pain (6-10) Ondansetron HCl 4 mg 08/04/20 20:00 08/06/20 18:30 Ondansetron Pf 4 Mg/2 Ml Vial IVP 4 mg Q6H PRN Administration Nausea/Vomiting Prochlorperazine Maleate 10 mg 08/06/20 18:19 08/06/20 20:40 Prochlorperazine Maleate 5 Mg Tab PO 10 mg Q6H PRN Administration HEADACHE/NAUSEA - Exam General Appearance: awake alert Eye: PERRL ENT: normocephalic atraumatic Neck: supple Respiratory: CTAB Cardiovascular: RRR Gastrointestinal: soft Extremities: no cyanosis Skin: normal turgor Neurological: no new deficit PSYCH: A&O x 3 Results - Labs Result Diagrams: 08/06/20 04:49 08/06/20 04:49 Lab results: WBC 3.7 thou/uL (4.8-10.8) L 08/06/20 04:49 Hgb 8.3 g/dL (12.0-16.0) L 08/06/20 04:49 Hct 27.0 % (36.0-47.0) L 08/06/20 04:49 MCV 74.3 fL (78.0-98.0) L 08/06/20 04:49 Plt Count 161 thou/uL (130-400) 08/06/20 04:49 Neutrophils % 73.4 % (42.0-75.0) 08/06/20 04:49 ESR Westergren 4 mm/hr (Less than 20) 08/05/20 04:38 Sodium 136 mmol/L (136-145) 08/06/20 04:49 Potassium 4.0 mmol/L (3.5-5.1) 08/06/20 04:49 Chloride 109 mmol/L (98-107) H 08/06/20 04:49 Carbon Dioxide 22 mmol/L (22-29) 08/06/20 04:49 BUN 16 mg/dL (7.0-18.7) 08/06/20 04:49 Creatinine 0.60 mg/dL (0.6-1.1) 08/06/20 04:49 Glucose 93 mg/dL (70-105) 08/06/20 04:49 Calcium 7.7 mg/dL (7.8-10.44) L 08/06/20 04:49 Total Bilirubin 0.5 mg/dL (0.2-1.2) 08/06/20 04:49 AST 42 U/L (5-34) H 08/06/20 04:49 ALT 52 U/L (8-55) 08/06/20 04:49 Alkaline Phosphatase 75 U/L (40-110) 08/06/20 04:49 Creatine Kinase 22 U/L (29-168) L 08/04/20 14:58 Troponin I Less than 0.010 ng/mL (< 0.028) 08/04/20 14:58 Serum Total Protein 5.6 g/dL (6.0-8.3) L 08/06/20 04:49 Albumin 3.2 g/dL (3.5-5.0) L 08/06/20 04:49 Urine Ketones Trace mg/dL (Negative) A 08/05/20 00:15 Urine Blood Negative (Negative) 08/05/20 00:15 Urine Nitrite Negative (Negative) 08/05/20 00:15 Ur Leukocyte Esterase Negative Halima/uL (Negative) 08/05/20 00:15 Urine RBC 4-6 HPF (0-3) A 08/05/20 00:15 Urine WBC 0-3 HPF (0-3) 08/05/20 00:15 Ur Squamous Epith Cells 7-10 HPF (0-3) A 08/05/20 00:15 Urine Bacteria None Seen HPF (None Seen) 08/05/20 00:15 - Radiology Interpretation MRI - head Status: image reviewed by me, report reviewed by me Additional Comment: MRI of the head reviewed and was negative for acute intracranial pathology. PN A/P - Plan 39-year-old female with history significant for iron deficiency anemia presented with acute onset focal paresthesias on the right with a headache. She continues to have persistent headache despite treatment with migraine cocktail. Consider starting gabapentin 100 mg 3 times daily. Neurochecks every 4 hours. MRI of the brain reviewed which was negative for acute intracranial pathology. CTA of the head and neck reviewed which was consistent did not reveal hemodynamically significant stenosis. 2D echocardiogram showed ejection fraction 60 to 65%. There is thickening of the posterior leaflet leaflet and outpatient cardiology records follow-up is recommended. MRI of the cervical spine was essentially unremarkable with no acute pathology but did show some mild degenerative changes. Patient had new complaint of pain in the right lower extremity and is concerned about clot. Ultrasound duplex of the right upper lower extremity was negative for any acute pathology. Continue headache control per primary team. Continue home medications. Continue medical management per primary team and hematology Continue aspirin 81 mg and statin for secondary stroke prevention. PT/OT/speech Plan discussed in detail with the patient, nursing staff and during MDR rounds.
[2020-08-07 15:38] VITALS: BP 97/58; TEMP 98
--- NOTE | 2020-08-07 17:32 | DIS ---
DATE OF ADMISSION: 08/05/2020 DATE OF DISCHARGE: 08/07/2020 DISCHARGE DISPOSITION: Home. FOLLOWUP: 1. Follow up with primary care physician at [facility] in 1 week. 2. Follow up with Neurology, Dr. Lee, in 1 week. 3. Follow up on SAMMY results. DISCHARGE MEDICATIONS: 1. Gabapentin 100 mg 3 times a day. 2. Aspirin 81 mg daily. 3. Lipitor 10 mg daily. The patient was advised to resume home dose of oral iron supplementation. ALLERGIES: THE PATIENT IS ALLERGIC TO ZOSYN. THE PATIENT WAS SEEN AND EXAMINED ON THE DAY OF DISCHARGE. DENIES ANY NEW COMPLAINTS. NO NEW FOCAL DEFICIT. INPATIENT CONSULT: Neurology Dr. Tucker. BRIEF HOSPITAL COURSE: The patient is a 39-year-old female with protein S deficiency, presented to the emergency room on August 04, 2020, with right upper extremity paresthesias with right leg pain. She was admitted to the hospital with a diagnosis of suspected acute CVA due to her history of protein S deficiency. Initial CT scan of the brain was negative. CT angiogram of the head and neck was negative for acute findings. MRI of the brain was negative for acute intracranial pathology. Echocardiogram showed ejection fraction 60% to 65% with grade 1 of 3 diastolic dysfunction, mildly enlarged right atrium. There was some thickening of the posterior leaflet of the mitral valve. Outpatient [facility] for better evaluation will be beneficial for complete evaluation. Primary care physician advised to follow. The patient was evaluated by Neurology, Dr. Tucker. Due to persistent symptoms, she also had an MRI of the cervical spine without contrast that showed mild disk degenerative changes at C5-6 level without any significant central canal or neural foraminal narrowing. Right lower extremity Doppler was negative as well. Exact etiology of her symptoms appears to be unclear. She will benefit from further evaluation as outpatient. Gabapentin has been started per Neurology recommendation. Due to concern for possible small vessel CVA versus TIA, Neurology also recommended low-dose aspirin with statin. Please note that the patient was evaluated by Hematology, Dr. Soto, during this hospital stay. The patient understands the above plan of care. FINAL DIAGNOSES: 1. Right-sided paresthesias with right leg pain of unclear etiology. Suspected small-vessel cerebrovascular accident. 2. Generalized headache, multifactorial. 3. History of protein S deficiency. 4. Hyponatremia. 5. Hypokalemia. 6. Hypomagnesemia. 7. Hypochromic microcytic anemia due to iron deficiency. The patient received 1 dose of IV iron. Anticoagulation was not started per Hematology recommendation. The patient understands the above plan of care. SIGNIFICANT LABORATORY DATA: Hemoglobin 8.3 with reticulocyte 1.6. Sodium 135, potassium 3.4, iron was 10, TIBC 294, and ferritin 30. Magnesium 1.8. Vitamin B12 of 650, folic acid 7.5, TSH 2.81. testing was negative. COVID-19 testing was negative. Job ID: [id number]
== END 2020-08-07 16:44 | disposition home or self-care (01) | DRG 65 ==
LOC: ERS 14:42 → 2SE 18:45 → OBSVTOIN 08-05 16:42
PROVIDERS: ADMIT Internal Medicine; ATTEND Internal Medicine
DX: I63.81 Other cerebral infarction due to occlusion or stenosis of small artery (principal); D68.59 Other primary thrombophilia; E87.1 Hypo-osmolality and hyponatremia; R20.2 Paresthesia of skin; E87.6 Hypokalemia; E83.42 Hypomagnesemia; D50.8 Other iron deficiency anemias; F17.210 Nicotine dependence, cigarettes, uncomplicated; R29.701 NIHSS score 1; I08.1 Rheumatic disorders of both mitral and tricuspid valves; R51.9 Headache, unspecified; Z20.828 Contact with and (suspected) exposure to other viral communicable diseases; Z79.899 Other long term (current) drug therapy; Z88.1 Allergy status to other antibiotic agents; Z88.0 Allergy status to penicillin; Z88.8 Allergy status to other drugs, medicaments and biological substances; Z90.49 Acquired absence of other specified parts of digestive tract
CPT/HCPCS: 36415; 70450; 70496; 70498; 70551; 71045; 72141; 80048; 80053; 80061; 80306; 81001; 82550; 82607; 82728; 82746; 83540; 83550; 83735; 84443; 84484; 84703; 85025; 85046; 85610; 85652; 85730; 86038; 86225; 87635; 93005; 93306; 96367; G0378; J1200; J1885; J2270; J2405; J2765; J2916; J3475; J3490; Q0163; Q0164; Q9967; U0003

== ENCOUNTER 2021-02-01 22:51 | Emergency (ER) | payer MEDICARE, MEDICAID ==
[2021-02-01 23:20] LABS: Bacteria/HPF None Seen HPF (None Seen); Bilirubin Negative (Negative); Blood, Urine Trace (Negative); Clarity Clear (Clear); Glucose, Urine (Dipstick) Normal (Negative); Ketone, Urine Negative (Negative); Leukocyte Negative Leu/uL (Negative); Nitrite Negative (Negative); Protein, Urine (Dipstick) Negative (Neg-Trace); RBC/HPF 0-3 HPF (0-3); Specific Gravity, Urine 1.021 (1.002-1.036); Squamous Epithelial 0-3 HPF (0-3); Urobilinogen Normal mg/dL (Less than 2); WBC/HPF 0-3 HPF (0-3)
[2021-02-01 23:21] LABS: #Eosinphils 0.3 thou/uL (0.0-0.7); #Monocytes 0.9 thou/uL (0.11-0.59); #Neutrophils 5.6 thou/uL (1.40-6.50); %Basophils 0.6 % (0.0-1.0); %Eosinophils 3.5 % (0.0-10.0); %Lymphocytes 12.4 % (21.0-51.0); %Neutrophils 72.5 % (42.0-75.0); Hemoglobin 12.5 g/dL (12.0-16.0); Mean Corpuscular HGB CONC 32.7 g/dL (32.0-36.0); Mean Corpuscular Hemoglobin 26.7 pg (27.0-31.0); Mean Corpuscular Volume 81.8 fL (78.0-98.0); Mean Platelet Volume 10.4 fL (7.4-10.4); Platelet Count 196 thou/uL (130-400); RBC Distribution Width 17.4 % (11.5-14.5); Red Blood Cell (RBC) Count 4.67 mill/uL (4.20-5.40); White Blood Cell (WBC) Count 7.7 thou/uL (4.8-10.8)
[2021-02-01 23:42] LABS: ALT (SGPT) 19 U/L (8-55); AST (SGOT) 16 U/L (5-34); Alkaline Phosphatase 31 U/L (40-110); Anion Gap 11 mmol/L (10-20); BUN (Urea Nitrogen) 8 mg/dL (7.0-18.7); Bilirubin, Total 0.3 mg/dL (0.2-1.2); Calc. Creatinine Clearance 0 mL/min (70-130); Calcium 8.5 mg/dL (7.8-10.44); Carbon Dioxide 26 mmol/L (22-29); Chloride 104 mmol/L (98-107); Globulin 2.9 g/dL (2.4-3.5); Glucose 103 mg/dL (70-105); Potassium 3.6 mmol/L (3.5-5.1); Protein, Total 6.9 g/dL (6.0-8.3); Sodium 137 mmol/L (136-145)
== END 2021-02-01 23:50 | disposition home or self-care (01) ==
LOC: ERS 22:51
DX: O99.511 Diseases of the respiratory system complicating pregnancy, first trimester (principal); J01.00 Acute maxillary sinusitis, unspecified; J01.10 Acute frontal sinusitis, unspecified; O99.891 Other specified diseases and conditions complicating pregnancy; R10.2 Pelvic and perineal pain; O99.331 Smoking (tobacco) complicating pregnancy, first trimester; F17.210 Nicotine dependence, cigarettes, uncomplicated; Z3A.10 10 weeks gestation of pregnancy
CPT/HCPCS: 36415; 80053; 81003; 81015; 84702; 85025; 86900; 86901; 99284

== ENCOUNTER 2021-02-02 08:03 | Emergency (ER) | payer MEDICARE, MEDICAID ==
[2021-02-02 08:38] LABS: #Eosinphils 0.3 thou/uL (0.0-0.7); #Lymphocytes 0.9 thou/uL (1.20-3.40); #Monocytes 0.9 thou/uL (0.11-0.59); #Neutrophils 4.8 thou/uL (1.40-6.50); %Basophils 0.5 % (0.0-1.0); %Eosinophils 3.6 % (0.0-10.0); %Lymphocytes 13.5 % (21.0-51.0); %Monocytes 12.9 % (0.0-10.0); %Neutrophils 69.5 % (42.0-75.0); Hemoglobin 11.8 g/dL (12.0-16.0); Mean Corpuscular HGB CONC 32.5 g/dL (32.0-36.0); Mean Corpuscular Hemoglobin 26.6 pg (27.0-31.0); Mean Corpuscular Volume 81.8 fL (78.0-98.0); Mean Platelet Volume 10.5 fL (7.4-10.4); Platelet Count 184 thou/uL (130-400); RBC Distribution Width 17.2 % (11.5-14.5); Red Blood Cell (RBC) Count 4.44 mill/uL (4.20-5.40)
[2021-02-02 09:48] LABS: INR-International Normal Ratio 1.2; Prothrombin Time 14.9 sec (12.0-14.7)
[2021-02-02 09:49] LABS: PTT 39.8 sec (22.9-36.1)
[2021-02-02 11:20] LABS: Bacteria/HPF None Seen HPF (None Seen); Bilirubin Negative (Negative); Blood, Urine 1+ (Negative); Clarity Clear (Clear); Glucose, Urine (Dipstick) Normal (Negative); Ketone, Urine Negative (Negative); Leukocyte Negative Leu/uL (Negative); Nitrite Negative (Negative); Protein, Urine (Dipstick) Negative (Neg-Trace); RBC/HPF 0-3 HPF (0-3); Specific Gravity, Urine 1.016 (1.002-1.036); Squamous Epithelial 0-3 HPF (0-3); Urobilinogen Normal mg/dL (Less than 2); WBC/HPF 0-3 HPF (0-3)
== END 2021-02-02 12:30 | disposition home or self-care (01) ==
LOC: ERS 08:03
DX: O20.0 Threatened abortion (principal); O20.8 Other hemorrhage in early pregnancy; O99.331 Smoking (tobacco) complicating pregnancy, first trimester; F17.210 Nicotine dependence, cigarettes, uncomplicated; Z3A.12 12 weeks gestation of pregnancy
CPT/HCPCS: 36415; 76815; 81003; 84702; 85025; 85610; 85730; 86900; 86901

== ENCOUNTER 2021-03-27 14:01 | Emergency (ER) | payer MEDICARE, MEDICAID ==
[2021-03-27 15:27] LABS: #Basophils 0.1 thou/uL (0.0-0.2); #Eosinphils 0.5 thou/uL (0.0-0.7); #Lymphocytes 1.4 thou/uL (1.20-3.40); #Neutrophils 8.6 thou/uL (1.40-6.50); %Basophils 0.6 % (0.0-1.0); %Eosinophils 4.4 % (0.0-10.0); %Lymphocytes 12.2 % (21.0-51.0); %Monocytes 8.3 % (0.0-10.0); %Neutrophils 74.5 % (42.0-75.0); Hemoglobin 11.5 g/dL (12.0-16.0); Mean Corpuscular HGB CONC 34.1 g/dL (32.0-36.0); Mean Corpuscular Hemoglobin 26.4 pg (27.0-31.0); Mean Corpuscular Volume 77.5 fL (78.0-98.0); Mean Platelet Volume 9.4 fL (7.4-10.4); Platelet Count 262 thou/uL (130-400); RBC Distribution Width 15.2 % (11.5-14.5); Red Blood Cell (RBC) Count 4.34 mill/uL (4.20-5.40); White Blood Cell (WBC) Count 11.5 thou/uL (4.8-10.8)
[2021-03-27 15:28] LABS: Bilirubin Negative (Negative); Blood, Urine Negative (Negative); Clarity Clear (Clear); Glucose, Urine (Dipstick) Normal (Negative); Ketone, Urine 40 mg/dL (Negative); Leukocyte Negative Leu/uL (Negative); Nitrite Negative (Negative); Protein, Urine (Dipstick) Negative (Neg-Trace); Specific Gravity, Urine 1.022 (1.002-1.036); Urobilinogen Normal mg/dL (Less than 2)
[2021-03-27 15:32] LABS: Pregnancy Test - Urine (BHCG) POSITIVE (Negative); Pregu Control Background? CLEAR/WHITE (CLR/WHITE); Pregu Control Bar Appear? YES (CONTROL BAR); Specific Gravity 1.022 (1.002-1.036)
[2021-03-27 15:41] LABS: ALT (SGPT) 10 U/L (8-55); AST (SGOT) 14 U/L (5-34); Alkaline Phosphatase 46 U/L (40-110); Anion Gap 11 mmol/L (10-20); BUN (Urea Nitrogen) 9 mg/dL (7.0-18.7); Bilirubin, Total 0.7 mg/dL (0.2-1.2); Calc. Creatinine Clearance 0 mL/min (70-130); Calcium 9.2 mg/dL (7.8-10.44); Carbon Dioxide 25 mmol/L (22-29); Chloride 102 mmol/L (98-107); Globulin 3.7 g/dL (2.4-3.5); Glucose 77 mg/dL (70-105); Potassium 3.4 mmol/L (3.5-5.1); Protein, Total 7.7 g/dL (6.0-8.3); Sodium 135 mmol/L (136-145)
== END 2021-03-27 17:01 | disposition home or self-care (01) ==
LOC: ERS 14:01
DX: O99.891 Other specified diseases and conditions complicating pregnancy (principal); D18.1 Lymphangioma, any site; N89.8 Other specified noninflammatory disorders of vagina; O99.332 Smoking (tobacco) complicating pregnancy, second trimester; F17.210 Nicotine dependence, cigarettes, uncomplicated; Z3A.20 20 weeks gestation of pregnancy
CPT/HCPCS: 76815; 80053; 81003; 81025; 85025; 86850; 86900; 86901

== ENCOUNTER 2023-08-01 08:28 | Outpatient (CLI) | payer OTHER | END 2023-08-01 08:29 | disposition home or self-care (01) | LOC: BICMAMMO 08:28 | PROVIDERS: ATTEND Nurse Practitioner Women's Health | DX: Z12.31 Encounter for screening mammogram for malignant neoplasm of breast (principal); Z80.3 Family history of malignant neoplasm of breast; Z91.89 Other specified personal risk factors, not elsewhere classified | CPT/HCPCS: 77063; 77067 ==